=== PATIENT | male | born 1955 | race Caucasian/White ===

== ENCOUNTER 2018-12-21 07:32 | Outpatient (CLI) | payer OTHER | END 2018-12-21 07:38 | disposition home or self-care (01) | LOC: LAB 07:32 | DX: E11.9 Type 2 diabetes mellitus without complications (principal); Z12.5 Encounter for screening for malignant neoplasm of prostate; Z12.11 Encounter for screening for malignant neoplasm of colon; E55.9 Vitamin D deficiency, unspecified; E78.2 Mixed hyperlipidemia ==

== ENCOUNTER 2018-12-23 08:09 | Outpatient (CLI) | payer OTHER | END 2018-12-23 08:24 | disposition home or self-care (01) | LOC: SONOGRAMA 08:09 | DX: R10.84 Generalized abdominal pain (principal) ==

== ENCOUNTER 2019-01-08 07:31 | Outpatient (CLI) | payer OTHER | END 2019-01-08 15:00 | disposition home or self-care (01) | LOC: LAB 07:31 | DX: D72.818 Other decreased white blood cell count (principal); Z11.3 Encounter for screening for infections with a predominantly sexual mode of transmission; Z11.4 Encounter for screening for human immunodeficiency virus [HIV] ==

== ENCOUNTER 2019-01-08 08:27 | Outpatient (CLI) | payer OTHER | END 2019-01-08 08:39 | disposition home or self-care (01) | LOC: TOM 08:27 | DX: R22.2 Localized swelling, mass and lump, trunk (principal) ==

== ENCOUNTER → 2019-04-21 | Emergency (ER) | payer OTHER ==
[~2019-04-21] VITALS: Ht 165.1 cm; Wt 61.2 kg
[~2019-04-21] MED LIST: PRILOSEC10 MG; ZANTAC 7575 MG
== END | disposition home or self-care (01) ==
LOC: ER 16:19
DX: K29.70 Gastritis, unspecified, without bleeding (principal); E86.0 Dehydration

== ENCOUNTER 2019-05-23 07:37 | Outpatient (CLI) | payer OTHER | END 2019-05-23 15:14 | disposition home or self-care (01) | LOC: LAB 07:37 | DX: E03.8 Other specified hypothyroidism (principal); E78.49 Other hyperlipidemia; K52.89 Other specified noninfective gastroenteritis and colitis; E78.00 Pure hypercholesterolemia, unspecified ==

== ENCOUNTER → 2019-06-13 07:24 | Outpatient (CLI) | payer OTHER | END | disposition home or self-care (01) | LOC: LAB 07:24 | DX: D70.8 Other neutropenia (principal); D72.820 Lymphocytosis (symptomatic); K90.0 Celiac disease; K29.00 Acute gastritis without bleeding; D80.8 Other immunodeficiencies with predominantly antibody defects ==

== ENCOUNTER 2019-08-03 07:41 | Outpatient (CLI) | payer OTHER | END 2019-08-03 09:39 | disposition home or self-care (01) | LOC: LAB 07:41 | DX: E03.8 Other specified hypothyroidism (principal); E78.49 Other hyperlipidemia; R18.8 Other ascites ==

== ENCOUNTER → 2019-08-10 | Outpatient (CLI) | payer OTHER | END | disposition home or self-care (01) | LOC: TOM 08:14 | DX: R10.84 Generalized abdominal pain (principal) ==

== ENCOUNTER 2019-09-20 15:36 | Outpatient (CLI) | payer OTHER | END 2019-09-20 19:00 | disposition home or self-care (01) | LOC: RAD 15:36 | DX: Z11.1 Encounter for screening for respiratory tuberculosis (principal) ==

== ENCOUNTER → 2020-01-02 14:51 | Outpatient (CLI) | payer OTHER | END | disposition home or self-care (01) | LOC: LAB 14:51 | DX: J11.1 Influenza due to unidentified influenza virus with other respiratory manifestations (principal) ==

== ENCOUNTER 2020-03-10 10:49 | Emergency (ER) | payer OTHER ==
[~2020-03-10] VITALS: Ht 172.7 cm; Wt 59.9 kg
== END 2020-03-10 15:51 | disposition home or self-care (01) ==
LOC: ER 10:49
DX: B34.9 Viral infection, unspecified (principal)

== ENCOUNTER 2020-06-30 09:44 | Outpatient (CLI) | payer OTHER | END 2020-06-30 09:53 | disposition home or self-care (01) | LOC: RAD 09:44 | PROVIDERS: ATTEND Family Medicine | DX: Z11.1 Encounter for screening for respiratory tuberculosis (principal) ==

== ENCOUNTER → 2020-07-10 09:03 | Outpatient (CLI) | payer OTHER | END | disposition home or self-care (01) | LOC: LAB 09:03 | PROVIDERS: ATTEND General Practice | DX: R73.09 Other abnormal glucose (principal) ==

== ENCOUNTER 2020-08-05 13:00 | Outpatient (CLI) | payer OTHER | END 2020-08-05 15:00 | disposition home or self-care (01) | LOC: PPH VACUNA 13:00 | DX: Z23 Encounter for immunization (principal) ==

== ENCOUNTER 2020-10-28 09:09 | Outpatient (CLI) | payer OTHER | END 2020-10-28 09:16 | disposition home or self-care (01) | LOC: LAB 09:09 | DX: N40.0 Benign prostatic hyperplasia without lower urinary tract symptoms (principal) ==

== ENCOUNTER 2020-11-21 12:37 | Emergency (ER) | payer OTHER ==
[~2020-11-21] VITALS: Ht 172.7 cm; Wt 59.0 kg
[2020-11-21] MEDS ORDERED: KETO10TA2 PO (13:37)
[2020-11-21] MEDS ORDERED: ZITHROMAX200 MG PO (13:37)
== END 2020-11-21 13:48 | disposition home or self-care (01) ==
LOC: ER 12:37
DX: H60.8X1 Other otitis externa, right ear (principal)

== ENCOUNTER 2020-11-27 13:45 | Outpatient (CLI) | payer OTHER ==
[~2020-11-27 13:45] MED LIST changes: +KETO10TA2 PO; +ZITHROMAX200 MG PO
== END 2020-11-27 15:00 | disposition home or self-care (01) ==
LOC: OFIC 805 13:45
PROVIDERS: ATTEND Otolaryngology
DX: H60.8X1 Other otitis externa, right ear (principal); H92.01 Otalgia, right ear; H93.8X1 Other specified disorders of right ear; H61.21 Impacted cerumen, right ear

== ENCOUNTER → 2020-12-04 | Outpatient (CLI) | payer OTHER | END | disposition home or self-care (01) | LOC: OFIC 805 15:00 | PROVIDERS: ATTEND Otolaryngology | DX: H92.01 Otalgia, right ear (principal); H61.21 Impacted cerumen, right ear; H60.8X1 Other otitis externa, right ear ==

== ENCOUNTER → 2020-12-16 | Outpatient (CLI) | payer OTHER | END | disposition home or self-care (01) | LOC: OFIC 805 15:15 | PROVIDERS: ATTEND Otolaryngology | DX: H90.0 Conductive hearing loss, bilateral (principal); H60.391 Other infective otitis externa, right ear ==

== ENCOUNTER 2020-12-26 15:13 | Outpatient (CLI) | payer OTHER | END 2020-12-26 15:21 | disposition home or self-care (01) | LOC: RAD 15:13 | PROVIDERS: ATTEND Podiatrist | DX: I70.8 Atherosclerosis of other arteries (principal); M77.42 Metatarsalgia, left foot; M79.672 Pain in left foot ==

== ENCOUNTER 2021-01-19 09:47 | Outpatient (CLI) | payer OTHER | END 2021-01-19 10:33 | disposition home or self-care (01) | LOC: OFIC 805 09:47 | PROVIDERS: ATTEND Otolaryngology | DX: H60.8X1 Other otitis externa, right ear (principal); H61.21 Impacted cerumen, right ear ==

== ENCOUNTER 2021-02-03 10:02 | Outpatient (CLI) | payer OTHER | END 2021-02-03 11:41 | disposition home or self-care (01) | LOC: OFIC 805 10:02 | PROVIDERS: ATTEND Otolaryngology | DX: H91.8X1 Other specified hearing loss, right ear (principal) ==

== ENCOUNTER 2021-03-06 15:00 | Outpatient (CLI) | payer OTHER | END 2021-03-06 15:06 | disposition home or self-care (01) | LOC: RAD 15:00 | DX: R07.89 Other chest pain (principal); Z01.818 Encounter for other preprocedural examination ==

== ENCOUNTER 2021-03-21 11:34 | Outpatient (CLI) | payer OTHER | END 2021-03-21 11:54 | disposition home or self-care (01) | LOC: LAB 11:34 | DX: E03.4 Atrophy of thyroid (acquired) (principal); E78.2 Mixed hyperlipidemia ==

== ENCOUNTER 2021-04-11 08:35 | Outpatient (CLI) | payer OTHER ==
[2021-06-24] MEDS ORDERED: TYLENOL325 M1 PO (11:58)
== END 2021-04-11 08:40 | disposition home or self-care (01) ==
LOC: LAB 08:35
PROVIDERS: ATTEND General Practice
DX: E11.9 Type 2 diabetes mellitus without complications (principal); N40.0 Benign prostatic hyperplasia without lower urinary tract symptoms

== ENCOUNTER 2021-05-22 15:23 | Outpatient (CLI) | payer OTHER ==
[2021-06-24] MEDS ORDERED: TYLENOL325 M1 PO (11:58)
== END 2021-05-22 15:30 | disposition home or self-care (01) ==
LOC: RAD 15:23
PROVIDERS: ATTEND General Practice
DX: R07.89 Other chest pain (principal)

== ENCOUNTER 2021-06-10 08:48 | Emergency (ER) | payer OTHER ==
[~2021-06-10] VITALS: Ht 172.7 cm; Wt 61.2 kg
[2021-06-10] MEDS ORDERED: FLONASE16 GM NASAL (10:47)
[2021-06-24] MEDS ORDERED: TYLENOL325 M1 PO (11:58)
== END 2021-06-10 11:28 | disposition home or self-care (01) ==
LOC: ER 08:48
DX: H61.21 Impacted cerumen, right ear (principal)

== ENCOUNTER 2021-08-17 08:00 | Outpatient (CLI) | payer OTHER ==
[~2021-08-17 08:00] MED LIST changes: +FLONASE16 GM NASAL; +TYLENOL325 M1 PO
== END 2021-08-17 08:30 | disposition home or self-care (01) ==
LOC: PPH VACUNA 08:00
PROVIDERS: ATTEND Emergency Medicine Pediatric Emergency Medicine
DX: Z23 Encounter for immunization (principal)

== ENCOUNTER 2022-03-01 14:57 | Outpatient (CLI) | payer OTHER | END 2022-03-01 15:00 | disposition home or self-care (01) | LOC: LAB 14:57 | PROVIDERS: ATTEND Preventive Medicine Occupational Medicine | DX: U07.1 COVID-19 (principal) ==

== ENCOUNTER 2022-03-10 09:39 | Emergency (ER) | payer OTHER ==
[~2022-03-10] VITALS: Ht 172.7 cm; Wt 61.2 kg
[2022-03-10] MEDS ORDERED: ZITHROMAX200 MG PO (13:51)
[2022-03-10] MEDS ORDERED: CLARITIN10 M1 PO (14:58)
== END 2022-03-10 15:05 | disposition home or self-care (01) ==
LOC: ER 09:39
DX: B34.9 Viral infection, unspecified (principal); Z20.822 Contact with and (suspected) exposure to COVID-19

== ENCOUNTER 2022-03-27 08:23 | Outpatient (CLI) | payer OTHER ==
[~2022-03-27 08:23] MED LIST changes: +CLARITIN10 M1 PO
== END 2022-03-27 08:24 | disposition home or self-care (01) ==
LOC: LAB 08:23
PROVIDERS: ATTEND General Practice
DX: N39.0 Urinary tract infection, site not specified (principal); I10 Essential (primary) hypertension; E11.9 Type 2 diabetes mellitus without complications; E03.8 Other specified hypothyroidism; N40.0 Benign prostatic hyperplasia without lower urinary tract symptoms; D64.9 Anemia, unspecified; E78.49 Other hyperlipidemia

== ENCOUNTER 2022-05-25 15:08 | Outpatient (CLI) | payer OTHER | END 2022-05-25 15:19 | disposition home or self-care (01) | LOC: RAD 15:08 | PROVIDERS: ATTEND General Practice | DX: Z13.83 Encounter for screening for respiratory disorder NEC (principal) ==

== ENCOUNTER 2022-06-11 13:59 | Outpatient (CLI) | payer OTHER | END 2022-06-11 14:05 | disposition home or self-care (01) | LOC: SONOGRAMA 13:59 | PROVIDERS: ATTEND General Practice | DX: E04.9 Nontoxic goiter, unspecified (principal) ==

== ENCOUNTER 2022-08-04 11:00 | Outpatient (CLI) | payer OTHER | END 2022-08-04 11:05 | disposition home or self-care (01) | LOC: PPH VACUNA 11:00 | PROVIDERS: ATTEND Emergency Medicine Pediatric Emergency Medicine | DX: Z23 Encounter for immunization (principal) ==

== ENCOUNTER 2022-10-05 14:42 | Outpatient (CLI) | payer OTHER ==
[~2022-10-05 14:42] MED LIST changes: +ECOTRIN81 MG PO
== END 2022-10-05 14:43 | disposition home or self-care (01) ==
LOC: LAB 14:42
DX: R05.9 Cough, unspecified (principal); R06.02 Shortness of breath; R50.9 Fever, unspecified; Z20.822 Contact with and (suspected) exposure to COVID-19

== ENCOUNTER 2023-05-06 15:08 | Outpatient (CLI) | payer OTHER | END 2023-05-06 15:12 | disposition home or self-care (01) | LOC: RAD 15:08 | PROVIDERS: ATTEND General Practice | DX: J10.08 Influenza due to other identified influenza virus with other specified pneumonia (principal) ==

== ENCOUNTER 2023-07-29 08:55 | Outpatient (CLI) | payer OTHER | END 2023-07-29 09:05 | disposition home or self-care (01) | LOC: PPH VACUNA 08:55 | PROVIDERS: ATTEND Emergency Medicine Pediatric Emergency Medicine | DX: Z23 Encounter for immunization (principal) | CPT/HCPCS: 90686; G0008 ==

== ENCOUNTER 2023-09-22 07:48 | Outpatient (CLI) | payer OTHER ==
[2023-09-22 08:34] LABS: URINE APPEARANCE Clear; URINE BILIRRUBIN Negative (NEGATIVE); URINE BLOOD Negative; URINE COLOR Yellow; URINE GLUCOSE Negative (NEGATIVE); URINE LEUKOCYTE Negative; URINE NITRATE Negative; URINE PROTEIN Negative (NEGATIVE); URINE UROBILINOGEN 0.2 E.U./dl
[2023-09-22 08:37] LABS: HEMATOCRIT 39.7 % (39.0-48.0); HEMOGLOBIN 12.9 g/dL (13-16.00); MEAN CELL VOLUME 88.1 fL (80.0-100.00); MEAN CORPUSCULAR HEMOGLOBIN 28.5 pg (27.00-32.0); MEAN CORPUSCULAR HGB CONC 32.4 g/dl (32.0-36.0); PLATELET COUNT 229 K/uL (150-450); RED BLOOD COUNT 4.51 M/uL (4.00-6.00); RED CELL DISTRIBUTION WIDTH 15.4 % (11.5-14.5)
[2023-09-22 08:41] LABS: URINE BACTERIA 11.3 uL (0.0-1933); URINE EPITHELIAL CELLS 2.5 uL (0.0-38.8)
[2023-09-22 08:46] LABS: URINE RBC 1.1 uL (0.0-20.8)
[2023-09-22 09:15] LABS: ALBUMIN 3.5 gm/dL (3.4-5.0); BILIRUBIN TOTAL 0.49 mg/dL (0.3-1.2); BILIRUBIN,CONJUGATED 0.12 mg/dL (0.0-0.2); BILIRUBIN,UNCONJUGATED 0.37 mg/dL (0.0-0.6); CALCIUM 9.4 mg/dL (8.5-10.1); CHOL HDL RATIO 2.8 (0-5.0); GFR 74.31; GLOBULINA 3.9 G/DL (2.4-3.5); POTASSIUM 4.99 mEq/L (3.5-5.1); PROSTATIC SPECIFIC ANTIGEN 1.52 NG/ML (0.010-4.00); T4 TOTAL 7.62 UG/DL (4.5-12.1); TOTAL PROTEIN 7.4 gm/dL (6.4-8.2); TSH 3.41 uIU/mL (0.358-3.74)
[2023-09-22 11:25] LABS: T3 TOTAL 1.26 ng/ml (0.846-2.02); VITAMIN D3 25 HYDROXY 45.33 ng/ml (30-120)
== END 2023-09-22 07:49 | disposition home or self-care (01) ==
LOC: LAB 07:48
PROVIDERS: ATTEND General Practice
DX: E78.5 Hyperlipidemia, unspecified (principal); E55.9 Vitamin D deficiency, unspecified; N39.0 Urinary tract infection, site not specified; R42 Dizziness and giddiness; Z12.5 Encounter for screening for malignant neoplasm of prostate; R10.9 Unspecified abdominal pain

== ENCOUNTER 2023-10-28 18:17 | Inpatient (IN) | payer OTHER ==
[~2023-10-28] VITALS: Ht 172.7 cm; Wt 61.2 kg
[2023-10-28 21:08] LABS: ERYTHROCYTE SEDIMENTATION RATE 47 mm/hr
[2023-10-28 21:15] LABS: HEMOGLOBIN 13.9 g/dL (13-16.00); MEAN CELL VOLUME 87.5 fL (80.0-100.00); MEAN CORPUSCULAR HGB CONC 33.1 g/dl (32.0-36.0); PLATELET COUNT 242 K/uL (150-450); RED CELL DISTRIBUTION WIDTH 15.2 % (11.5-14.5)
[2023-10-28 21:29] LABS: ALBUMIN 3.8 gm/dL (3.4-5.0); BILIRUBIN TOTAL 0.42 mg/dL (0.3-1.2); CALCIUM 9.6 mg/dL (8.5-10.1); CREATININE SERUM 0.89 mg/dL (0.70-1.30); GLOBULINA 4.9 G/DL (2.4-3.5); POTASSIUM 3.59 mEq/L (3.5-5.1); TOTAL PROTEIN 8.7 gm/dL (6.4-8.2)
[2023-10-28 21:32] LABS: C-REACTIVE PROTEIN 7.23 MG/DL (0.00-0.29)
[2023-10-29 05:14] LABS: URINE APPEARANCE Clear; URINE BILIRRUBIN Negative (NEGATIVE); URINE BLOOD Negative; URINE COLOR Yellow; URINE GLUCOSE Negative (NEGATIVE); URINE LEUKOCYTE Negative; URINE NITRATE Negative; URINE PROTEIN Negative (NEGATIVE); URINE UROBILINOGEN 0.2 E.U./dl
[2023-10-29 05:17] LABS: URINE BACTERIA 20.1 uL (0.0-1933); URINE EPITHELIAL CELLS 2.6 uL (0.0-38.8)
[2023-10-29 05:31] LABS: URINE RBC 1.1 uL (0.0-20.8); URINE WBC 1.2 uL (0.0-23.2)
[2023-10-30 08:57] LABS: HEMATOCRIT 36.7 % (39.0-48.0); HEMOGLOBIN 12.6 g/dL (13-16.00); MEAN CELL VOLUME 85.6 fL (80.0-100.00); MEAN CORPUSCULAR HEMOGLOBIN 29.4 pg (27.00-32.0); MEAN CORPUSCULAR HGB CONC 34.3 g/dl (32.0-36.0); PLATELET COUNT 185 K/uL (150-450); RED BLOOD COUNT 4.28 M/uL (4.00-6.00); RED CELL DISTRIBUTION WIDTH 15.4 % (11.5-14.5)
[2023-10-30 09:14] LABS: ALBUMIN 2.8 gm/dL (3.4-5.0); BILIRUBIN TOTAL 0.47 mg/dL (0.3-1.2); CALCIUM 8.6 mg/dL (8.5-10.1); CREATININE SERUM 0.75 mg/dL (0.70-1.30); GFR 103.56; GLOBULINA 3.2 G/DL (2.4-3.5); POTASSIUM 4.32 mEq/L (3.5-5.1)
[2023-10-31 06:43] LABS: INR 1.12; PARTIAL THROMBOPLASTIN TIME 32.1 SECONDS (22.0-34.0); PROTHROMBIN TIME 11.7 SECONDS (9.0-11.5)
[2023-10-31 06:51] LABS: ALBUMIN 2.8 gm/dL (3.4-5.0); BILIRUBIN TOTAL 0.69 mg/dL (0.3-1.2); CALCIUM 8.8 mg/dL (8.5-10.1); CREATININE SERUM 0.86 mg/dL (0.70-1.30); GFR 88.43; GLOBULINA 3.2 G/DL (2.4-3.5); POTASSIUM 3.91 mEq/L (3.5-5.1)
[2023-10-31 06:52] LABS: C-REACTIVE PROTEIN 5.19 MG/DL (0.00-0.29)
[2023-10-31 06:59] LABS: HEMATOCRIT 36.1 % (39.0-48.0); HEMOGLOBIN 12.4 g/dL (13-16.00); MEAN CELL VOLUME 85.7 fL (80.0-100.00); MEAN CORPUSCULAR HEMOGLOBIN 29.4 pg (27.00-32.0); MEAN CORPUSCULAR HGB CONC 34.3 g/dl (32.0-36.0); PLATELET COUNT 208 K/uL (150-450); RED BLOOD COUNT 4.21 M/uL (4.00-6.00); RED CELL DISTRIBUTION WIDTH 15.1 % (11.5-14.5)
[2023-10-31 07:43] LABS: ERYTHROCYTE SEDIMENTATION RATE 38 mm/hr
[2023-11-02 12:31] LABS: HEMATOCRIT 40.2 % (39.0-48.0); HEMOGLOBIN 13.8 g/dL (13-16.00); RED BLOOD COUNT 4.63 M/uL (4.00-6.00)
[2023-11-02 12:34] LABS: HEMATOCRIT 40.1 % (39.0-48.0); HEMOGLOBIN 13.7 g/dL (13-16.00); MEAN CELL VOLUME 85.2 fL (80.0-100.00); MEAN CORPUSCULAR HEMOGLOBIN 29.2 pg (27.00-32.0); MEAN CORPUSCULAR HGB CONC 34.3 g/dl (32.0-36.0); PLATELET COUNT 228 K/uL (150-450); RED CELL DISTRIBUTION WIDTH 14.5 % (11.5-14.5)
[2023-11-02 12:51] LABS: CALCIUM 9.3 mg/dL (8.5-10.1); CREATININE SERUM 0.76 mg/dL (0.70-1.30); GFR 101.99; POTASSIUM 4.07 mEq/L (3.5-5.1)
[2023-11-06 07:09] LABS: HEMATOCRIT 35.1 % (39.0-48.0); HEMOGLOBIN 12.1 g/dL (13-16.00); MEAN CELL VOLUME 84.3 fL (80.0-100.00); MEAN CORPUSCULAR HEMOGLOBIN 29.2 pg (27.00-32.0); MEAN CORPUSCULAR HGB CONC 34.6 g/dl (32.0-36.0); PLATELET COUNT 153 K/uL (150-450); RED BLOOD COUNT 4.16 M/uL (4.00-6.00); RED CELL DISTRIBUTION WIDTH 14.9 % (11.5-14.5)
== END 2023-11-07 14:53 | disposition home or self-care (01) | DRG 982 ==
LOC: ER 18:17 → MEDI 23:04
PROVIDERS: General Practice; Internal Medicine; Internal Medicine Hematology & Oncology; Student in an Organized Health Care Education/Training Program; Surgery; ADMIT Internal Medicine; ATTEND Internal Medicine
PROC: B54CZZZ Ultrasonography of Left Lower Extremity Veins (ICD-10-PCS; 2023-10-29)
PROC: 0J9P0ZZ Drainage of Left Lower Leg Subcutaneous Tissue and Fascia, Open Approach (ICD-10-PCS; 2023-11-01)
PROC: 0JDP0ZZ Extraction of Left Lower Leg Subcutaneous Tissue and Fascia, Open Approach (ICD-10-PCS; principal; 2023-11-01 15:15)
DX: I83.028 Varicose veins of left lower extremity with ulcer other part of lower leg (principal); L02.416 Cutaneous abscess of left lower limb; L97.923 Non-pressure chronic ulcer of unspecified part of left lower leg with necrosis of muscle; L03.116 Cellulitis of left lower limb; L08.9 Local infection of the skin and subcutaneous tissue, unspecified; B96.20 Unspecified Escherichia coli [E. coli] as the cause of diseases classified elsewhere; J10.1 Influenza due to other identified influenza virus with other respiratory manifestations; B96.1 Klebsiella pneumoniae [K. pneumoniae] as the cause of diseases classified elsewhere; B96.89 Other specified bacterial agents as the cause of diseases classified elsewhere; E11.65 Type 2 diabetes mellitus with hyperglycemia; Z79.4 Long term (current) use of insulin; D70.9 Neutropenia, unspecified; Z20.822 Contact with and (suspected) exposure to COVID-19

== ENCOUNTER 2024-05-07 08:43 | Outpatient (CLI) | payer OTHER | END 2024-05-07 08:46 | disposition home or self-care (01) | LOC: SONOGRAMA 08:43 | PROVIDERS: ATTEND Pathology Anatomic Pathology | DX: R59.0 Localized enlarged lymph nodes (principal) ==

== ENCOUNTER 2024-11-21 13:09 | Emergency (ER) | payer OTHER ==
[~2024-11-21] VITALS: Ht 172.7 cm; Wt 79.8 kg
[2024-11-21 13:25] VITALS: BP 136/63; O2SAT 97
[2024-11-21] MEDS ORDERED: ACYCLOVIR 200 MG/5 ML ML PO ONE (13:45)
[2024-11-21 14:11] LABS: HEMATOCRIT 41.6 % (39.0-48.0); HEMOGLOBIN 14.2 g/dL (13-16.00); MEAN CELL VOLUME 86.2 fL (80.0-100.00); MEAN CORPUSCULAR HEMOGLOBIN 29.4 pg (27.00-32.0); MEAN CORPUSCULAR HGB CONC 34.1 g/dl (32.0-36.0); PLATELET COUNT 214 K/uL (150-450); RED BLOOD COUNT 4.83 M/uL (4.00-6.00); RED CELL DISTRIBUTION WIDTH 15.5 % (11.5-14.5)
[2024-11-21 14:32] LABS: ALBUMIN 3.7 gm/dL (3.4-5.0); BILIRUBIN TOTAL 0.55 mg/dL (0.3-1.2); CALCIUM 9.3 mg/dL (8.5-10.1); CREATININE SERUM 1.03 mg/dL (0.70-1.30); GFR 71.6; GLOBULINA 4.3 G/DL (2.4-3.5); POTASSIUM 4.37 mEq/L (3.5-5.1)
[2024-11-21] MEDS ORDERED: VALACYCLOVIR1000 MG PO (15:01)
== END 2024-11-21 15:49 | disposition home or self-care (01) ==
LOC: ER 13:12
PROVIDERS: General Practice
DX: B02.30 Zoster ocular disease, unspecified (principal)

== ENCOUNTER 2024-11-29 10:06 | Emergency (ER) | payer OTHER ==
[~2024-11-29] VITALS: Ht 172.7 cm; Wt 61.7 kg
[~2024-11-29 10:06] MED LIST changes: +VALACYCLOVIR1000 MG PO
[2024-11-29] MEDS ORDERED: GENTAMICIN SULFATE 3.5 GM TUBE OP ONE (13:15)
[2024-11-29] MEDS ORDERED: GENTAMICIN SULFATE 0.15 MG/DR DROPS 5ML OP ONE (13:39)
[2024-11-29 13:48] LABS: HEMATOCRIT 41.4 % (39.0-48.0); HEMOGLOBIN 14.1 g/dL (13-16.00); MEAN CELL VOLUME 85.5 fL (80.0-100.00); MEAN CORPUSCULAR HEMOGLOBIN 29.1 pg (27.00-32.0); MEAN CORPUSCULAR HGB CONC 34.1 g/dl (32.0-36.0); PLATELET COUNT 278 K/uL (150-450); RED BLOOD COUNT 4.84 M/uL (4.00-6.00); RED CELL DISTRIBUTION WIDTH 15.3 % (11.5-14.5)
[2024-11-29 14:03] LABS: ALBUMIN 3.6 gm/dL (3.4-5.0); BILIRUBIN TOTAL 0.41 mg/dL (0.3-1.2); CALCIUM 9.5 mg/dL (8.5-10.1); CREATININE SERUM 0.85 mg/dL (0.70-1.30); GFR 89.11; GLOBULINA 4.7 G/DL (2.4-3.5); POTASSIUM 4.61 mEq/L (3.5-5.1); TOTAL PROTEIN 8.3 gm/dL (6.4-8.2)
== END 2024-11-29 17:25 | disposition home or self-care (01) ==
LOC: ER 10:08
PROVIDERS: Emergency Medicine
DX: R53.81 Other malaise (principal); B00.53 Herpesviral conjunctivitis

== ENCOUNTER 2024-12-18 12:36 | Outpatient (CLI) | payer OTHER | END 2024-12-18 12:37 | disposition home or self-care (01) | LOC: SONOGRAMA 12:36 | PROVIDERS: ATTEND Otolaryngology | DX: R22.1 Localized swelling, mass and lump, neck (principal) ==

== ENCOUNTER 2025-03-26 18:44 | Emergency (ER) | payer OTHER ==
[~2025-03-26] VITALS: Ht 172.7 cm; Wt 61.7 kg
[2025-03-26] MEDS ORDERED: GUAIFENESIN 200 MG/10 ML BLIST.PACK PO ONE ×2 (19:39→19:45)
[2025-03-26] MEDS ORDERED: IPRATROPIUM BROMIDE 0.5 MG/2.5 ML AMPUL.NEB IH ONE ×2 (19:43→19:45)
[2025-03-26 20:24] LABS: INFLUENZA A AG NEGATIVE (NEGATIVE)
[2025-03-26 20:41] LABS: COVID-19 AG NEGATIVE (NEGATIVE)
[2025-03-26 20:47] LABS: MEAN CORPUSCULAR HEMOGLOBIN 29.5 pg (27.00-32.0); MEAN CORPUSCULAR HGB CONC 34.2 g/dl (32.0-36.0); PLATELET COUNT 339 K/uL (150-450); RED BLOOD COUNT 4.42 M/uL (4.00-6.00); RED CELL DISTRIBUTION WIDTH 14.4 % (11.5-14.5)
== END 2025-03-26 21:46 | disposition home or self-care (01) ==
LOC: ER 18:44
PROVIDERS: General Practice
DX: B34.9 Viral infection, unspecified (principal); R05.9 Cough, unspecified; Z20.822 Contact with and (suspected) exposure to COVID-19